=== PATIENT | male | born 1980 | race Caucasian/White ===

== ENCOUNTER 2016-12-22 10:18 | Inpatient (IN) | payer OTHER ==
[~2016-12-22] VITALS: Ht 172.7 cm; Wt 104.5 kg
[2016-12-22 11:05] LABS: HEMATOCRIT 42.6 % (42.0-52.0); HEMOGLOBIN 14.5 g/dl (13.5-18.0); MEAN CELL VOLUME 91 fl (80.0-100.0); MEAN CORPUSCULAR HEMOGLOBIN 31 pg (27.0-31.0); MEAN CORPUSCULAR HGB CONC 34 g/dl (33.0-37.0); MEAN PLATELET VOLUME 11.4 fl (7.4-10.4); PLATELET COUNT 146 K/mm3 (130-400); RED BLOOD COUNT 4.68 M/mm3 (4.20-5.60); REDCELL DISTRIBUTION WIDTH-CV 12.9 % (11.5-14.5); WHITE BLOOD COUNT 13.7 K/mm3 (4.8-10.8)
[2016-12-22 11:12] LABS: ADD PATHOLOGY DIFF REVIEW NO
[2016-12-22 11:16] LABS: ADJUSTED CALCIUM 8.9 mg/dL (8.4-10.2); ALBUMIN 4.6 gm/dL (3.5-5.0); BILIRUBIN,TOTAL 1.6 mg/dL (0.0-1.0); CALCIUM 9.4 mg/dL (8.4-10.2); CREATININE, serum 1.26 mg/dL (0.66-1.25); POTASSIUM 3.8 mmol/L (3.4-5.0); TOTAL PROTEIN 8.4 gm/dL (6.4-8.2)
[2016-12-22 11:19] LABS: INR 1.1 (0.8-3.0); PROTHROMBIN TIME 12.7 SECONDS (9.7-12.8)
[2016-12-22 11:21] LABS: PARTIAL THROMBOPLASTIN TIME 33.4 SECONDS (26.0-37.0)
[2016-12-22 11:32] LABS: C-REACTIVE PROTEIN 21.2 mg/dL (0.0-0.9)
[2016-12-22 11:48] LABS: BAND 25 % (0-10); EOSINOPHIL 1 % (0-4); NEUTROPHILS 65 % (42.0-75.2); TOTAL CELLS COUNTED 100
[2016-12-22 11:49] LABS: PLATELET ESTIMATE NORMAL (NORMAL)
[2016-12-22 12:11] LABS: INFLUENZA B NEGATIVE
[2016-12-22 12:33] LABS: PH 5 (5-8); SQUAMOUS EPITHELIAL 0-2 /hpf; URINE APPEARANCE Clear; URINE BACTERIA None Seen /hpf; URINE BILIRUBIN Negative (NEGATIVE); URINE BLOOD Negative (NEGATIVE); URINE COLOR Amber; URINE GLUCOSE Negative (NEGATIVE); URINE KETONE Negative (NEGATIVE); URINE RBC 0-2 /hpf; URINE UROBILINOGEN >=4.0 mg/dL (NEGATIVE); URINE WBC 0-2 /hpf
[2016-12-22 14:47] VITALS: BP 135/82; PULSE 87; TEMP 98.9
[2016-12-22 14:49] VITALS: BP 135/82; PULSE 87; TEMP 98.9
[2016-12-22 16:41] LABS: HEMATOCRIT 38.5 % (42.0-52.0); HEMOGLOBIN 13.2 g/dl (13.5-18.0)
[2016-12-22 17:06] LABS: AMPHETAMINE URINE POSITIVE; BARBITURATES URINE NEGATIVE; BENZODIAZEPINES URINE NEGATIVE; BUPRENORPHINE URINE NEGATIVE; METHADONE URINE NEGATIVE; OPIATES URINE NEGATIVE; OXYCODONE URINE NEGATIVE
[2016-12-22 17:07] LABS: PHENCYCLIDINE URINE NEGATIVE; PROPOXYPHENE URINE NEGATIVE; THC CANNABINOIDS URINE NEGATIVE
[2016-12-22 18:31] VITALS: BP 126/77; PULSE 77; TEMP 98.6
[2016-12-22 22:33] VITALS: BP 136/91; PULSE 77; TEMP 98.5
[2016-12-22 23:07] LABS: HEMOGLOBIN 12.8 g/dl (13.5-18.0)
[2016-12-22 23:59] VITALS: BP 141/87; PULSE 86; TEMP 98.5
[2016-12-23] VITALS (26 sets, daily range): BP systolic 113–157; BP diastolic 45–106; PULSE 73–110; TEMP 97.5–99.6
[2016-12-23 07:40] LABS: BASO % 0.5 % (0.0-2.0); EOS # 0.1 (0.0-0.7); EOS % 1.5 % (0-4.0); GRAN # 5.1 (1.4-6.5); HEMATOCRIT 38.2 % (42.0-52.0); HEMOGLOBIN 12.7 g/dl (13.5-18.0); LYMPH # 0.8 (1.2-3.4); LYMPH % 12.2 % (20.0-51.0); MEAN CELL VOLUME 92 fl (80.0-100.0); MEAN CORPUSCULAR HEMOGLOBIN 31 pg (27.0-31.0); MEAN CORPUSCULAR HGB CONC 33 g/dl (33.0-37.0); MONO # 0.5 (0.1-0.6); MONO % 7.3 % (1.7-9.3); PLATELET COUNT 126 K/mm3 (130-400); RED BLOOD COUNT 4.17 M/mm3 (4.20-5.60); REDCELL DISTRIBUTION WIDTH-CV 12.8 % (11.5-14.5); WHITE BLOOD COUNT 6.6 K/mm3 (4.8-10.8)
[2016-12-23 07:50] LABS: ADJUSTED CALCIUM 8.7 mg/dL (8.4-10.2); ALBUMIN 3.7 gm/dL (3.5-5.0); BILIRUBIN,TOTAL 1.1 mg/dL (0.0-1.0); CALCIUM 8.5 mg/dL (8.4-10.2); CREATININE, serum 0.95 mg/dL (0.66-1.25); POTASSIUM 4.1 mmol/L (3.4-5.0); TOTAL PROTEIN 7.1 gm/dL (6.4-8.2)
[2016-12-23 08:31] LABS: C-REACTIVE PROTEIN 20.2 mg/dL (0.0-0.9)
[2016-12-23 11:05] LABS: HEMATOCRIT 38.7 % (42.0-52.0); HEMOGLOBIN 13.1 g/dl (13.5-18.0)
[2016-12-23 18:37] LABS: HEMOGLOBIN 12.6 g/dl (13.5-18.0)
[2016-12-23 23:03] LABS: HEMOGLOBIN 13.2 g/dl (13.5-18.0)
[2016-12-24] VITALS (11 sets, daily range): BP systolic 121–144; BP diastolic 65–99; PULSE 71–85; TEMP 98.1–99.8
[2016-12-24 09:21] LABS: BASO % 0.5 % (0.0-2.0); EOS # 0.1 (0.0-0.7); EOS % 1.3 % (0-4.0); GRAN # 3.7 (1.4-6.5); GRAN % 62.8 % (42.2-75.2); HEMATOCRIT 39.4 % (42.0-52.0); HEMOGLOBIN 13.3 g/dl (13.5-18.0); LYMPH # 1.3 (1.2-3.4); LYMPH % 21.8 % (20.0-51.0); MEAN CELL VOLUME 91 fl (80.0-100.0); MEAN CORPUSCULAR HEMOGLOBIN 31 pg (27.0-31.0); MEAN CORPUSCULAR HGB CONC 34 g/dl (33.0-37.0); MEAN PLATELET VOLUME 11.9 fl (7.4-10.4); MONO # 0.8 (0.1-0.6); MONO % 12.9 % (1.7-9.3); PLATELET COUNT 163 K/mm3 (130-400); RED BLOOD COUNT 4.34 M/mm3 (4.20-5.60); REDCELL DISTRIBUTION WIDTH-CV 12.5 % (11.5-14.5)
[2016-12-24 09:28] LABS: ADJUSTED CALCIUM 9.7 mg/dL (8.4-10.2); ALBUMIN 3.8 gm/dL (3.5-5.0); BILIRUBIN,TOTAL 0.9 mg/dL (0.0-1.0); CALCIUM 9.5 mg/dL (8.4-10.2); CREATININE, serum 0.99 mg/dL (0.66-1.25); TOTAL PROTEIN 7.5 gm/dL (6.4-8.2)
[2016-12-25 00:59] VITALS: BP 130/71; PULSE 92; TEMP 98.7
[2016-12-25 06:03] VITALS: BP 112/68; PULSE 77; TEMP 98.6
[2016-12-25 07:25] VITALS: BP 122/78; PULSE 72; TEMP 98.6
[2016-12-25 07:26] LABS: HEMATOCRIT 40.8 % (42.0-52.0); HEMOGLOBIN 13.6 g/dl (13.5-18.0); MEAN CELL VOLUME 92 fl (80.0-100.0); MEAN CORPUSCULAR HEMOGLOBIN 31 pg (27.0-31.0); MEAN CORPUSCULAR HGB CONC 33 g/dl (33.0-37.0); MEAN PLATELET VOLUME 11.3 fl (7.4-10.4); PLATELET COUNT 192 K/mm3 (130-400); RED BLOOD COUNT 4.46 M/mm3 (4.20-5.60); REDCELL DISTRIBUTION WIDTH-CV 12.3 % (11.5-14.5); WHITE BLOOD COUNT 6.3 K/mm3 (4.8-10.8)
[2016-12-25 07:43] LABS: ADD PATHOLOGY DIFF REVIEW NO
[2016-12-25 07:49] LABS: ADJUSTED CALCIUM 9.6 mg/dL (8.4-10.2); BILIRUBIN,TOTAL 0.9 mg/dL (0.0-1.0); CALCIUM 9.6 mg/dL (8.4-10.2); CREATININE, serum 1.02 mg/dL (0.66-1.25); POTASSIUM 4.3 mmol/L (3.4-5.0); TOTAL PROTEIN 7.9 gm/dL (6.4-8.2)
[2016-12-25] MEDS ORDERED: FOLIC ACID 11 MG/TA1 PO (08:25)
[2016-12-25] MEDS ORDERED: THIAMINE 1100 MG/TAB PO (08:25)
[2016-12-25] MEDS ORDERED: PROTONIX 40MG T40 MG PO (08:25)
[2016-12-25] MEDS ORDERED: AMOXICILLIN 50500 MG PO ×2 (08:25→13:04)
[2016-12-25] MEDS ORDERED: DUO-KAPS1 CAP PO (08:25)
[2016-12-25] MEDS ORDERED: LEVAQUIN 750MG750 M1 PO (10:14)
[2016-12-25 10:53] VITALS: BP 121/72; PULSE 96; TEMP 99.2
[2016-12-25] MEDS ORDERED: CEFTIN500 MG PO (13:17)
[2016-12-25 15:34] LABS: BAND 14 % (0-10); EOSINOPHIL 4 % (0-4); NEUTROPHILS 48 % (42.0-75.2); TOTAL CELLS COUNTED 100
[2016-12-25 15:35] LABS: PLATELET ESTIMATE NORMAL (NORMAL)
== END 2016-12-25 16:03 | disposition home or self-care (01) | DRG 872 ==
LOC: COL.ER 10:18 → MEDICAL 12:46
PROVIDERS: Emergency Medicine; Family Medicine; Internal Medicine Gastroenterology; Physician Assistant
PROC: 0DJ08ZZ Inspection of Upper Intestinal Tract, Via Natural or Artificial Opening Endoscopic (ICD-10-PCS; principal; 2016-12-23 17:15)
PROC: 0DJD8ZZ Inspection of Lower Intestinal Tract, Via Natural or Artificial Opening Endoscopic (ICD-10-PCS; 2016-12-23 17:15)
DX: A41.9 Sepsis, unspecified organism (principal); N17.9 Acute kidney failure, unspecified; I50.20 Unspecified systolic (congestive) heart failure; J02.0 Streptococcal pharyngitis; F10.10 Alcohol abuse, uncomplicated; F14.90 Cocaine use, unspecified, uncomplicated; F15.90 Other stimulant use, unspecified, uncomplicated; K25.9 Gastric ulcer, unspecified as acute or chronic, without hemorrhage or perforation; K60.2 Anal fissure, unspecified; Y90.0 Blood alcohol level of less than 20 mg/100 ml
CPT/HCPCS: OP; 99233-AI; 99239; C9113; G0378; J0696; J1956; J2250; J2704; J3010; J3370; J7030; J7050